=== PATIENT | male | born 1995 ===

== ENCOUNTER 2020-08-21 12:25 | Emergency (ER) | payer SELFPAY ==
[2020-08-21] MEDS ORDERED: DIPHtheria,PERTUSSIS(ACELL),TETANUS VACCINE/PF 0.5 ML VIAL IM ONE (14:37)
[2020-08-21] MEDS ORDERED: HYDROcodone/ACETAMINOPHEN 5-325 MG TAB PO ONE (14:37)
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
[2020-08-21 16:37] VITALS: BP 156/84
== END 2020-08-21 16:36 | disposition home or self-care (01) ==
LOC: ED 12:25
DX: S93.401A Sprain of unspecified ligament of right ankle, initial encounter (principal); S00.511A Abrasion of lip, initial encounter; M25.561 Pain in right knee; R03.0 Elevated blood-pressure reading, without diagnosis of hypertension; Z79.899 Other long term (current) drug therapy; W21.9XXA Striking against or struck by unspecified sports equipment, initial encounter; Y93.89 Activity, other specified; Y92.89 Other specified places as the place of occurrence of the external cause; Y99.8 Other external cause status
CPT/HCPCS: 90471; 90715